=== PATIENT | female | born 1955 | race African-American/Black ===

== ENCOUNTER 2016-07-13 19:32 | Emergency (ER) | payer MEDICARE ==
[2016-07-13 21:45] LABS: BASOPHILS 0.2 % (0.0-2.0); EOSINOPHILS 0.7 % (0-7); HEMATOCRIT 41.9 % (36.0-48.0); HEMOGLOBIN 12.8 g/dL (12-16); IMMATURE GRANULOCYTES 0.5 % (0-5); LYMPHOCYTES 8.3 % (15-50); MCH 22.4 pg (26.0-34.0); MCHC 30.5 g/dL (31.0-37.0); MCV 73.3 fL (80.0-100.0); MONOCYTES 8.6 % (2-11); NEUTROPHILS 81.7 % (40-80); PLATELET COUNT 207 10x3/uL (130-400); RBC 5.72 10x6/uL (4.00-5.40); RDW 15.6 % (11.5-14.5); WBC 6.2 10x3/uL (4.8-10.8)
[2016-07-13 21:58] LABS: ALKALINE PHOSPHATASE 155 U/L (46-116); BILIRUBIN - TOTAL 0.38 mg/dL (0.2-1.3); CALC OSMOLALITY 287 mosm/kg (275-300); CARBON DIOXIDE 30.4 mmol/L (21.0-32.0); CHLORIDE - SERUM 106 mmol/L (98-107); CREATINE KINASE 43 UL (21-215); GLUCOSE 106 mg/dL (74-106); POTASSIUM - SERUM 3.2 mmol/L (3.5-5.1); PRO BNP 97 pg/mL (0-125); PROTEIN - SERUM 8.5 g/dL (6.4-8.2); SODIUM 146 mmol/L (136-145); THYROID STIMULATING HORMONE 0.29 uIU/mL (0.36-3.74); UREA NITROGEN 3 mg/dL (7-18)
[2016-07-13 22:16] LABS: ALT (SGPT) 26 U/L (10-68); CALCIUM 9.8 mg/dL (8.5-10.1); CREATININE - SERUM 0.8 mg/dL (0.6-1.3); MAGNESIUM - SERUM 2.1 mg/dL (1.8-2.4); TROPONIN-I 0.019 ng/mL (0.000-0.060); eGFR NON AFRICAN AMERICAN 78 mL/min (90-120)
== END 2016-07-13 23:35 | disposition home or self-care (01) ==
LOC: D.ER 19:32
PROVIDERS: Emergency Medicine
DX: R00.2 Palpitations (principal); E87.6 Hypokalemia; I10 Essential (primary) hypertension; I48.2 Chronic atrial fibrillation; E05.90 Thyrotoxicosis, unspecified without thyrotoxic crisis or storm; G40.909 Epilepsy, unspecified, not intractable, without status epilepticus

== ENCOUNTER 2016-07-23 23:19 | Emergency (ER) | payer MEDICARE, MEDICAID ==
[2016-07-24 00:54] LABS: HEMATOCRIT 41.5 % (36.0-48.0); HEMOGLOBIN 12.9 g/dL (12-16); LYMPHOCYTES 11.2 % (15-50); MCH 22.6 pg (26.0-34.0); MCHC 31.1 g/dL (31.0-37.0); MCV 72.7 fL (80.0-100.0); NEUTROPHILS 80.9 % (40-80); PLATELET COUNT 231 10x3/uL (130-400); RBC 5.71 10x6/uL (4.00-5.40); RDW 17.3 % (11.5-14.5); WBC 6.1 10x3/uL (4.8-10.8)
[2016-07-24 01:28] LABS: ALBUMIN 3.9 g/dL (3.4-5.0); ALKALINE PHOSPHATASE 147 U/L (46-116); ALT (SGPT) 33 U/L (10-68); BILIRUBIN - TOTAL 0.44 mg/dL (0.2-1.3); CALC OSMOLALITY 282 mosm/kg (275-300); CALCIUM 9.6 mg/dL (8.5-10.1); CARBON DIOXIDE 25.3 mmol/L (21.0-32.0); CHLORIDE - SERUM 105 mmol/L (98-107); CREATININE - SERUM 0.8 mg/dL (0.6-1.3); GLUCOSE 96 mg/dL (74-106); PROTEIN - SERUM 8.6 g/dL (6.4-8.2); SODIUM 143 mmol/L (136-145); UREA NITROGEN 7 mg/dL (7-18); eGFR NON AFRICAN AMERICAN 78 mL/min (90-120)
== END 2016-07-24 02:11 | disposition home or self-care (01) ==
LOC: D.ER 23:19
PROVIDERS: Emergency Medicine
DX: I10 Essential (primary) hypertension (principal); I48.2 Chronic atrial fibrillation; E05.90 Thyrotoxicosis, unspecified without thyrotoxic crisis or storm; E87.6 Hypokalemia; G40.909 Epilepsy, unspecified, not intractable, without status epilepticus